=== PATIENT | female | born 1980 | race American Indian/Alaskan Native ===

== ENCOUNTER 2016-11-14 10:12 | Emergency (ER) | payer BC ==
[2016-11-14 10:36] VITALS: BP 126/84; PULSE 67; TEMP 98; O2SAT 100
[2016-11-14] MEDS ORDERED: Albuterol-Ipratrop 3 mg / 0.5 (3 ml) UD INH STA ×2 (11:42→11:47)
--- NOTE | 2016-11-14 12:18 | ED PDOC ---
HPI: SOB/CHF/COPD Time Seen by Provider: 11/14/16 11:00 Chief Complaint (Nursing): Shortness Of Breath Chief Complaint (Provider): Shortness of Breath History Per: Patient History/Exam Limitations: no limitations Onset/Duration Of Symptoms: Hrs (since 5:00 this morning) Current Symptoms Are (Timing): Still Present Additional Complaint(s): Lena Parra is a 36 year old female with a history of asthma that presents to the ED with a chief complaint of acute shortness of breath that she has been experiencing since 5:00 AM this morning. Patient states that she ran out of her albuterol pump at home and knows that the cause of her symptoms is her asthma. Past Medical History Reviewed: Historical Data, Nursing Documentation, Vital Signs Vital Signs: Last Vital Signs Temp 98 F 11/14/16 10:34 Pulse 67 11/14/16 10:34 Resp 16 11/14/16 10:38 BP 126/84 11/14/16 10:34 Pulse Ox 100 11/14/16 12:25 - Medical History PMH: Asthma - Family History Family History: States: Unknown Family Hx, Hypertension - Immunization History Hx Tetanus Toxoid Vaccination: No Hx Influenza Vaccination: No Hx Pneumococcal Vaccination: No - Home Medications Home Medications: Ambulatory Orders Medication Instructions Recorded Albuterol HFA [Ventolin HFA 90 2 puff IH [id number] #0 puff 02/12/15 mcg/actuation (8 g)] Albuterol 0.083% [Albuterol 0.083% 2.5 mg IH Q4H PRN #1 neb 11/14/16 Inhal Gianna (2.5 mg/3 ml) UD] Albuterol HFA [Ventolin HFA 90 1 - 2 puff IH Q4H PRN #1 bottle 11/14/16 mcg/actuation (8 g)] - Allergies Allergies/Adverse Reactions: Allergies Allergy/AdvReac Type Severity Reaction Status Date / Time Penicillins Allergy RASH Verified 11/14/16 10:33 shellfish derived Allergy SWELLING Verified 11/14/16 10:33 Review of Systems Respiratory: Positive for: Shortness of Breath, Wheezing (mild) Physical Exam - Reviewed Nursing Documentation Reviewed: Yes Vital Signs Reviewed: Yes - Physical Exam Appears: Positive for: Non-toxic, No Acute Distress Head Exam: Positive for: ATRAUMATIC, NORMOCEPHALIC Skin: Positive for: Normal Color, Warm Cardiovascular/Chest: Positive for: Regular Rate, Rhythm. Negative for: Murmur Respiratory: Positive for: Normal Breath Sounds (good air entry bilaterally), Wheezing (mild) Neurologic/Psych: Positive for: Alert, Oriented. Negative for: Motor/Sensory Deficits - ECG O2 Sat by Pulse Oximetry: 100 (RA) Pulse Ox Interpretation: Normal Medical Decision Making Medical Decision Making: Impression: SOB due to asthma Plan: * Albuterol 3 ml INH * Nebulizer Tx * Peak Flow Pre/Post Tx * Reevaluation Patient feels better after 1 Albuterol Tx, minimal wheeze. Will gives pt one more Abuterol tx as well as Prednisone 40 mg PO. 12:25 Patient feels better, resting comfortably, has been sleeping in ED. Patient has no complaints and is stable for discharge home. Scribe Attestation: Documented by Jodi Cunningham, acting as a scribe for Jennifer Dasilva MD. Provider Scribe Attestation: All medical record entries made by the Scribe were at my direction and personally dictated by me. I have reviewed the chart and agree that the record accurately reflects my personal performance of the history, physical exam, medical decision making, and the department course for this patient. I have also personally directed, reviewed, and agree with the discharge instructions and disposition. Disposition - Clinical Impression Clinical Impression: Asthma - Patient ED Disposition Is Patient to be Admitted: No Counseled Patient/Family Regarding: Studies Performed, Diagnosis, Need For Followup - Disposition [facility]errals: [facility] [Outside] [facility] [Outside] Disposition: Routine/Home Disposition Time: 12:25 Condition: STABLE Additional Instructions: follow up with your primary doctor in 1-2 days return to ED with any worsening or concerning symptoms Prescriptions: Albuterol 0.083% [Albuterol 0.083% Inhal Gianna (2.5 mg/3 ml) UD] 2.5 mg IH Q4H PRN #1 neb PRN Reason: Wheezing Albuterol HFA [Ventolin HFA 90 mcg/actuation (8 g)] 1 - 2 puff IH Q4H PRN #1 bottle PRN Reason: Wheezing Instructions: Asthma (ED)
[2016-11-14 12:22] VITALS: RESP 16
--- NOTE | 2016-11-18 08:06 | CARD ---
APPROVED REPORT EKG Measurement Heart [id number] [id number] <Conclusion> Normal sinus rhythm Normal ECG
== END 2016-11-14 12:32 | disposition home or self-care (01) ==
LOC: H.ER 10:12
DX: J45.909 Unspecified asthma, uncomplicated (principal)

== ENCOUNTER 2017-08-30 15:01 | Inpatient (IN) | payer BC ==
[2017-08-30 16:23] VITALS: BMI 35.9
[2017-08-30 18:20] LABS: BASO % 0.5 % (0.0-2.0); EOS # 0.1 K/uL (0.0-0.7); EOS % 0.8 % (0.0-4.0); HEMOGLOBIN 11.8 g/dL (12.0-16.0); LYMPH # 1.7 K/uL (1.0-4.3); LYMPH % 17.4 % (20.0-40.0); MEAN CELL VOLUME 88.2 fl (81.0-99.0); MEAN CORPUSCULAR HEMOGLOBIN 29.7 pg (27.0-31.0); MEAN CORPUSCULAR HGB CONC 33.7 g/dL (33.0-37.0); MEAN PLATELET VOLUME 10.2 fl (7.2-11.7); MONO % 10.4 % (0.0-10.0); NEUT # 6.9 K/uL (1.8-7.0); NEUT % 70.9 % (50.0-75.0); NRBC % 0.2 % (0.0-0.0); RBC 3.98 Mil/uL (3.80-5.20); RED CELL DISTRIBUTION WIDTH 13.9 % (11.5-14.5); WHITE BLOOD COUNT 9.8 K/uL (4.8-10.8)
[2017-08-30 18:29] LABS: ALBUMIN 3.5 g/dL (3.5-5.0); ALT/SGPT 35 U/L (9-52); AST/SGOT 32 U/L (14-36); BILIRUBIN,DIRECT 0.3 mg/ml (0.0-0.4); BLOOD UREA NITROGEN 9 mg/dl (7-17); CALCIUM 10.1 mg/dL (8.4-10.2); GFR AFRICAN-AMERICAN > 60; GFR NON-AFRICAN AMERICAN > 60; URIC ACID 5.8 mg/Dl (2.2-7.5)
[2017-08-30 18:39] LABS: SQUAMOUS EPITHIAL 1 /hpf (0-5); URINE BILIRUBIN NEGATIVE (NEGATIVE); URINE BLOOD NEGATIVE (NEGATIVE); URINE CLARITY CLEAR (Clear); URINE COLOR STRAW (YELLOW); URINE GLUCOSE (UA) NEG (Normal); URINE LEUKOCYTE ESTERASE NEG Leu/uL (Negative); URINE PROTEIN NEGATIVE (NEGATIVE); URINE UROBILINOGEN 0.2-1.0 mg/dL (0.2-1.0)
[2017-08-30] MEDS ORDERED: Lactated Ringer's 1,000 ML IV SCH ×2 (20:15)
[2017-08-30] MEDS ORDERED: Magnesium Sulfate 4 gm/100 ml 4 GM/100 ML BAG IV ONE (20:44)
[2017-08-30] MEDS ORDERED: Magnesium Sul 40GM/1L SW 40 GM/1,000 ML ML IV ONE (21:00)
[2017-08-30] MEDS: Lactated Ringer's 1,000 ML IV SCH (21:20)
[2017-08-31] MEDS ORDERED: Clindamycin 600mg/50ml NS 600 MG/50 ML BAG IVPB SCH (01:00)
[2017-08-31] MEDS ORDERED: Oxytocin 30 units/LR 500ML 30 U/500 ML BAG IV ONE (11:26)
[2017-08-31] MEDS ORDERED: ceFAZolin 2 GM in Sodium Chloride 0.9% 100 ML IVPB ONE (11:30)
--- NOTE | 2017-08-31 11:43 | OBPN ---
Datetime: 08/31/2017 11:37 IP Informed Consent Obtain: Section Delivery IP Progress Note Comment: Patient evaluated, cervidil removed, /-3, remote from delivery. BPs=15 0s/90s, patient on Mg for pre-eclampsia. Patient denies [place], blurry vision, N/V. Discussed with rossana justice that she is remote from delivery - will proceed with for delivery. FHR-120 mod da, +acce ls, no decels. Discussed with patient risks/benefits of surgery, antibiotics ordered, scds placed rita aterally, will proceed to OR Datetime: 08/30/2017 20:00 Membranes, Provider: Intact FHR - Baseline A Provider: 125 Vital Signs Provider: Reviewed; Within Normal Limits NICHD Accel Fetus A IP Provider: 15X15 FHR Category Provider Fetus A: Category I NICHD Variability Prov Fetus A: Moderate 6-25bpm Dilatation, Provider: FT Effacement, Provider: Thick Station, Provider: -3 Datetime: 08/30/2017 16:31 Vital Signs Provider Details: BP NICHD Decel Fetus A IP Provider: None
[2017-08-31] MEDS ORDERED: Gentamicin 100mg/100ml NS 100 MG/100 ML BAG IVPB SCH (11:45)
[2017-08-31] MEDS ORDERED: Morphine 1 mg/ml preservative-free Inj(Duramorph) ONE (12:00)
[2017-08-31] MEDS ORDERED: Dexamethasone 4 mg/1 ml ONE (12:34)
[2017-08-31] MEDS ORDERED: Bisacodyl 5mg EC Tab PO PRN (13:08)
[2017-08-31] MEDS ORDERED: Oxycodone/Acetaminophen 5/325 mg Tab PO PRN ×2 (13:08)
--- NOTE | 2017-08-31 13:09 | OBDS ---
MATERNAL INFORMATION Provider Comments: Surgeon:Dr. Christel Horton Mixer Operator Helper Hot Metal: Dr. Martin Horton Pre-op Dx: Pre-eclampsia, full term remote from delivery Surgery: PLTCS Post-op: Same Findings: Live female infant, 9lbs 2oz, 9/9, cephalic, clear fluid, grossly nml tubes, ovaries, pl acenta, uterus EBL: 800ml Anesthesia: Spinal by Dr. Pardo UO: 100mL Total Input: 1200mL Complications: None LABOR SUMMARY EDC: 09/03/2017 00:00 No. Babies in Womb: 1 LABOR INFORMATION Cervical Ripening Agents: Cervidil (Annotations: Cervidil inserted by Dr. Cheung ) Group B Beta Strep: Positive
--- NOTE | 2017-08-31 13:40 | OBADHP ---
Datetime: 08/30/2017 20:00 Admit Comment, IP Provider: 36 y/o F , IUP 39.3 wks confir U/S, EDGARD 09/03, sent here by Dr. Eddie bobo for PIH work up after 140-150 systolic. patient denies any headache, blurred vision, chest pain, di zziness, SOB, abdo pain or urinary symptoms Denies LOF/CTX/BV. good FM PNC: Dr. Long PNI: No complications so far PMH: Asthma (used meds in last summer) PSH: Denies Meds: PNV Allg: Penicillin (hives) SH: Denies any use FH: father htn ROS: unremarkable VS: 139/85 FHT 150 PE: as above A/P: 36 y/o F , IUP 39.3 confir U/S, EDGARD 09/03, sent here by Dr. Long for PIH work up after 1 40-150 systolic. Pt has elevated blood pressure will admit pt for IOL. -admit patient -IOL protocal -cervidil -continue FM -Mg+ -anesthesiology Case Discussed with Dr. Skye Carmichael, PGY I Pelvic Type - PN: Adequate Extremities - PN: Normal Abdomen - PN: Normal Back - PN: Not Done Breast - PN: Not Done Lungs - PN: Normal Heart - PN: Normal Thyroid - PN: Not Done Neurologic - PN: Normal HEENT - PN: Normal General - PN: Normal FHR - Baseline A Provider: 125 Membranes, Provider: Intact Vital Signs Provider: Reviewed; Within Normal Limits IP Chief Complaint: Signs/Symptoms Gestational HTN NICHD Variability Prov Fetus A: Moderate 6-25bpm NICHD Accel Fetus A IP Provider: [id number] FHR Category Provider Fetus A: Category I Dilatation, Provider: FT Effacement, Provider: Thick Station, Provider: -3 Genitourinary Exam: Normal DTRs - PN: Not Done EGA AdmitDate IP: 39.3 IP Adm Impression: Term, intrauterine IP Admit Plan: Admit to unit; Initiate labor protocol; Initiate labor induction protocol Datetime: 08/30/2017 16:31 IP Chief Complaint Other: HighBP Vital Signs Provider Details: BP NICHD Decel Fetus A IP Provider: None
--- NOTE | 2017-08-31 16:04 | OP ---
PROCEDURE DATE: 08/31/2017 PREOPERATIVE DIAGNOSIS: Preeclampsia full term remote from delivery. POSTOPERATIVE DIAGNOSIS: Preeclampsia full term remote from delivery. PROCEDURE: Primary low-transverse . SURGEON: Christel Horton MD AP PROCESSOR: Dr. Martin Horton. TYPE OF ANESTHESIA: Spinal. ANESTHESIA ADMINISTERED BY: Vadim Duff MD FINDINGS: White female infant, cephalic presentation, 9 pounds 2 ounces, 9 and 9 Apgars, clear fluid, grossly normal tubes, ovaries, placenta, and uterus. ESTIMATED BLOOD LOSS: 800 mL. URINE OUTPUT: 100 mL. TOTAL FLUID INPUT: 1200 mL. COMPLICATIONS: None. CONDITION: Stable. PATHOLOGY SPECIMEN: Cord blood. INDICATIONS: This is a 36-year-old at 39 plus weeks who presented to Labor and Delivery with elevated blood pressures and proteinuria who was found to be preeclamptic started on induction was started. The patient did not progress in labor and was remote from delivery with elevated blood pressures. We discussed with the patient to proceed with for delivery. The patient verbalized understanding. Risks and benefits of procedure were discussed with the patient including risk of bleeding, infection, damage to surrounding organs such as bowel, bladder, ureter, and uterus. The patient verbalized understanding and signed informed consent. DESCRIPTION OF PROCEDURE: The patient was taken to the OR. Gentamicin and clindamycin were given preoperatively, anesthesia was placed bilaterally. The patient prepped and draped in the normal sterile fashion in dorsal supine position with a leftward tilt. A Pfannenstiel skin incision was made with the scalpel and carried to the underlying layer of fascia with the scalpel and the Bovie. The fascia was incised in the midline. The incision was extended laterally with the Hazel scissors. Leah clamp was used to tent up the inferior aspect of this incision, which we dissected off the underlying pyramidalis of muscles with the Bovie. In a similar fashion, we tented up the superior aspect of this incision and dissected off the underlying rectus abdominis muscles with the Bovie. The muscles were bluntly at the midline. The peritoneum identified, entered bluntly. Incision was extended superiorly and inferiorly with good visualization of all underlying organs. The bladder blade was inserted. The vesicouterine peritoneum was identified, grasped with pickups and a bladder flap was created with the Metzenbaum scissors. The lower uterine was incised in a transverse fashion and the uterine cavity was entered. Clear fluid was noted. Uterine incision was extended manually. The was delivered in cephalic presentation atraumatically followed by shoulders and rest of the infant atraumatically. Mouth and nose was suctioned. Cords were clamped and cut. The was handed off to the awaiting pediatric team. Cord blood was obtained. Placenta was extracted manually. Uterus was exteriorized, cleared off all clots. Uterine incision was repaired with an 0-Vicryl stitch and [id number] was placed with an 0-Monocryl stitch. Hysterotomy site appeared to be hemostatic. The uterus was returned to the abdomen. Gutters were cleared of all clots. The peritoneum was closed with 2-0 Monocryl. Muscles were re-approximated with the same stitch. The fascia was reapproximated with an 0-Vicryl stitch. Subcutaneous fat was reapproximated with 0-Vicryl. The skin was closed with 4-0 Monocryl. Sponge, lap, and needle counts were correct x4. The patient was taken to recovery room in stable condition. There were no other complications. Christel Horton MD
[2017-08-31] MEDS ORDERED: Magnesium Sul 40GM/1L SW 40 GM/1,000 ML ML IV ONE ×2 (16:59→17:00)
[2017-08-31] MEDS: Lactated Ringer's 1,000 ML IV SCH (21:00)
[2017-08-31] MEDS: Simethicone 80 mg Chewtab PO SCH (22:00)
[2017-09-01] MEDS ORDERED: Magnesium Sul 40GM/1L SW 40 GM/1,000 ML ML IV ONE (06:31)
[2017-09-01 07:36] LABS: HEMOGLOBIN 10.6 g/dL (12.0-16.0); MEAN CELL VOLUME 88.3 fl (81.0-99.0); MEAN CORPUSCULAR HEMOGLOBIN 29.2 pg (27.0-31.0); MEAN CORPUSCULAR HGB CONC 33.1 g/dL (33.0-37.0); RBC 3.64 Mil/uL (3.80-5.20); RED CELL DISTRIBUTION WIDTH 13.9 % (11.5-14.5); WHITE BLOOD COUNT 13.5 K/uL (4.8-10.8)
[2017-09-01] MEDS ORDERED: Multivitamin With Minerals Tab PO SCH (09:00)
[2017-09-01] MEDS: Simethicone 80 mg Chewtab PO SCH ×3 (09:09→22:13)
--- NOTE | 2017-09-01 09:28 | OBPPN ---
Datetime: 09/01/2017 06:08 PP Pain Prov: Within normal limits PP Nausea Prov: Denies PP Flatus Prov: Yes PP BM Prov: No PP Breasts Prov: Normal PP Heart Prov: Normal PP Lungs Prov: Normal PP Abdomen/Uterus Prov: Normal PP Lochia Prov: Normal PP Vulva/Perineum Prov: Normal PP CVA Tenderness Prov: Not Done PP Extremities Prov: Normal PP C/S Incision Prov: Normal PP Progress Prov: Normal PP Impression Prov: Normal progression PP Plan Prov: Continue present management PP Progress Note Prov: S: 36 YO POD1, s/p repeat on 08/31/17. Pt is seen and examined i n L_D this AM. Pt is currently recovering and receiving Mg. Was itchy last night, but resolved after benadryl. Pt is endorsing minimal abdominal pain with movement. Bleeding has improved since delivery. Will advance diet today. - BM but passing flatus. Denies chest pain, headache, blurry vision, dyspne a, n/v/d/c, fever/chills. O: VS: wnl, afebrile GEN: Awake, alert and baby girl by bedside. Sleepy HEENT: EOMI, moist mucosa. LUNGS: CTA B/L, no wheezing, rhonci, or rales CVS: RRR, S1, S2 no murmurs ABD: ND, +BS, soft abdomen, firm fundus, below umbilicus. Dressing intact this AM, no drainage noted. EXT: No edema, neg calf tenderness NEURO/PSYCHI: AAOx3, no grossly focal deficit, preserved affect and mood. Assessment/Plan: 36 YO POD1, s/p repeat on 08/31/17, gave to a baby girl. Pt re cora afebrile, tolerating pain with medication, good PO intake and urinating without any difficultie s. Doing well on POD1. -C/w regular diet as tolerated. -OOB with caution SCDs for DVT prophylaxis -continue to monitor blood pressure -continue Mg+ -advance diet as tolerated -Ibuprofen 600 mg for pain prn -C/w Colace 100mg PO BID -Encourage and early ambulation. Brenda Carmichael, PGY I OB Hospitalist Addendum: Pt seen and examined by me. Agree w/ above. POD 1 s/p primary c/s for P EC, remote from delivery, doing well, breast feeding. Pt reports still feeling a little itchy in her legs. Benadryl 25 mg PO ordered. (ES) Vital Signs Provider PP: Reviewed; Within Normal Limits
[2017-09-01] MEDS ORDERED: Oxycodone/Acetaminophen 5/325 mg Tab PO PRN (12:45)
[2017-09-01] MEDS ORDERED: Bisacodyl 5mg EC Tab PO PRN (12:45)
[2017-09-01] MEDS: Oxycodone/Acetaminophen 5/325 mg Tab PO PRN ×2 (16:54→22:09)
[2017-09-02] MEDS: Simethicone 80 mg Chewtab PO SCH ×3 (05:05→22:00)
[2017-09-02] MEDS ORDERED: Lansinoh for Breast Feeding Mothers TP ONE (07:47)
[2017-09-02] MEDS: Multivitamin With Minerals Tab PO SCH (08:23)
--- NOTE | 2017-09-02 10:48 | OBPPN ---
Datetime: 09/02/2017 07:39 PP Pain Prov: Within normal limits PP Nausea Prov: Denies PP Flatus Prov: Yes PP BM Prov: No PP Heart Prov: Normal PP Lungs Prov: Normal PP Abdomen/Uterus Prov: Normal PP Lochia Prov: Normal PP CVA Tenderness Prov: Normal PP Extremities Prov: Normal PP C/S Incision Prov: Normal PP Progress Prov: Normal PP Impression Prov: Normal progression PP Plan Prov: Continue present management PP Progress Note Prov: S: 36 YO POD2, s/p repeat on 08/31/17. Pt is seen and examined i n L_D this AM. Pain is well controlled with medications. Lochia is decreasing in quantity since deliv raysa. Pt tolerating PO, ambulating and urinating with NO issues. Pt passing gasses but NO BM yet. Pt i s and supplementing with a little formula. Denies chest pain, headache, blurry vision, dyspnea, n/v/d/c, fever/chills. O: H/H 10.6/32.1; BP 149/88 VS: wnl, afebrile GEN: Awake, alert and baby girl by bedside. Sleepy HEENT: EOMI, moist mucosa. LUNGS: CTA B/L, no wheezing, rhonci, or rales CVS: RRR, S1, S2 no murmurs ABD: ND, +BS, soft abdomen, firm fundus, below umbilicus. Incision is dry, intact and clean, no st erile strip and no [place]. EXT: No edema, neg calf tenderness NEURO/PSYCHI: AAOx3, no grossly focal deficit, preserved affect and mood. Assessment/Plan: 36 YO POD2. Pt remains afebrile, good PO intake, with elevated BP and recove ring well overall. -C/w post- management. -Monitor VS, Blood pressure. -C/w regular diet as tolerated. -continue to monitor blood pressure -Ibuprofen 600 mg for pain prn -C/w Colace 100mg PO BID -Encourage and early ambulation. Case discussed with OB-hospitalist correctional captain. Kenji PGY-1. Addendum by Dr. Horton: I have evaluated the patient independently and I agree with the above IP PP Procedures: None Vital Signs Provider PP: Reviewed
[2017-09-02] MEDS: Oxycodone/Acetaminophen 5/325 mg Tab PO PRN (18:33)
[2017-09-03] MEDS: Simethicone 80 mg Chewtab PO SCH ×2 (04:21→10:08)
[2017-09-03] MEDS: Multivitamin With Minerals Tab PO SCH (08:48)
[2017-09-03] MEDS ORDERED: Pneumococcal 23-Valent Vaccine IM ONE (10:00)
--- NOTE | 2017-09-03 10:34 | OBPPN ---
Datetime: 09/03/2017 06:00 PP Pain Prov: Within normal limits PP Nausea Prov: Denies PP Flatus Prov: Yes PP BM Prov: Yes PP Breasts Prov: Normal PP Heart Prov: Normal PP Lungs Prov: Normal PP Abdomen/Uterus Prov: Normal PP Lochia Prov: Normal PP Vulva/Perineum Prov: Normal PP CVA Tenderness Prov: Not Done PP Extremities Prov: Normal PP C/S Incision Prov: Normal PP Progress Prov: Normal PP Impression Prov: Normal progression PP Plan Prov: Continue present management; Discharge PP Progress Note Prov: S: 36 YO POD3, s/p repeat . Pt is seen and examined this AM. No acute overnight events. Pt is endorsing mild abdominal pain, significant improvement from previously . Pt is ambulating without any difficulties. Bleeding is like menses. Tolerating PO diet. +BM/+flatus . Looking forward to going home today. Denies chest pain, dyspnea, headache, blurry vision, n/v/d/c, fever/chills, and calf pain. O: VS: wnl, afebrile GEN: Awake, alert and baby girl HEENT: EOMI, moist mucosa. LUNGS: CTA B/L, no wheezing, rhonci, or rales CVS: RRR, S1, S2 no murmurs ABD: ND, +BS, soft abdomen, firm fundus, below umbilicus. Incision healing well, no discharge noted. EXT: No edema, neg calf tenderness NEURO/PSYCHI: AAOx3, no grossly focal deficit, preserved affect and mood. Assessment/Plan: 36 YO POD3, s/p repeat on 08/31/17, gave to a baby girl. Pt re cora afebrile, tolerating pain with medication, good PO intake and urinating without any difficultie s. S/p Mg+. Doing well on POD3. -C/w regular diet as tolerated. -OOB with caution SCDs for DVT prophylaxis -monitor blood pressure -Ibuprofen 600 mg for pain prn -C/w Colace 100mg PO BID -f/u post-del cbc -Encourage and early ambulation. -will d/c pt home today -pp follow up in 6 weeks, WC in 1 week and follow up for baby in 2-3 days Brenda Carmichael, PGY I obh addendum: pt seen _ examined by me. agree w/above assessment and plan w/ following addition- c/o breast nipp le pain. o: nipple erythema- mild p: lacation consult cool gel pack instructed in . Vital Signs Provider PP: Reviewed; Within Normal Limits
--- NOTE | 2017-09-03 10:37 | OBDCSUM ---
Datetime: 09/03/2017 06:09 Discharged to, Provider: Home Follow up at, Provider: Dr. Long Disch Instr Activity: Normal activity; May be up to bathroom; May be up for meals; May Shower Disch Instr Diet: Regular Discharge Instructions, Provider: Routine instructions given Discharge Diagnosis, Provider: Term Delivered Discharge Time: 09/03/2017 06:09 Follow up in weeks, Provider: 1 week and 6 weeks Disch Referrals: None Discharge Instruct Comment, Prov: pp and postop Contraception discussed, Prov: Yes Disch Activity Restrictions: No exercising; No lifting; No driving; No sexual activity; Nothing in v agina - [place], tampons, douche Discharge Comment, Provider: 36 YO with PIH, POD3, s/p for labor arrest. Gave t o a baby girl, 39.4wks IUP, on 08/31/17 @ 12:32AM. of 9/9 and weight of 4138g. S/p Mg, with no co mplications during the post- period. Pt is tolerating PO diet, pain is well controlled, and amb ulating without difficulties. Doing well POD3. Discharge Instructions: 1. Encourage ambulating and 2. C/W PNV 1 tab po daily 3. Percocet 5/325mg and Ibuprofen 600mg for pain and Senokot for constipation. 4. ER precautions: If excessive bleeding or fever without relief from medication, go to ED 5. F/U with Dr. Long in 1 week WC, in 6 wks for PP visit and follow up in 2-3 days for baby. Brenda Carmichael, PGY I Contraception after Delivery: Undecided
[2017-09-04 01:19] VITALS: BP 135/91; PULSE 86; RESP 18; TEMP 97.1; O2SAT 99
== END 2017-09-03 12:15 | disposition home or self-care (01) | DRG 766 ==
LOC: H.EROB2 15:01 → H.L&D 20:06 → H.OB/GYN 09-01 13:34
PROVIDERS: ADMIT Obstetrics & Gynecology; ATTEND Obstetrics & Gynecology
PROC: 4A1HXCZ Monitoring of Products of Conception, Cardiac Rate, External Approach (ICD-10-PCS; 2017-08-30)
PROC: 10D00Z1 Extraction of Products of Conception, Low, Open Approach (ICD-10-PCS; principal; 2017-08-31)
DX: O11.4 Pre-existing hypertension with pre-eclampsia, complicating childbirth (principal); Z37.0 Single live birth; O99.52 Diseases of the respiratory system complicating childbirth; J45.909 Unspecified asthma, uncomplicated; O99.824 Streptococcus B carrier state complicating childbirth; Z3A.39 39 weeks gestation of pregnancy

== ENCOUNTER 2018-07-12 08:33 | Emergency (ER) | payer BC ==
[2018-07-12 08:43] VITALS: BMI 28.0
--- NOTE | 2018-07-12 09:16 | ED PDOC ---
HPI: General Adult Time Seen by Provider: 07/12/18 09:09 Chief Complaint (Nursing): ENT Problem Chief Complaint (Provider): sore throat History Per: Patient History/Exam Limitations: no limitations Onset/Duration Of Symptoms: Days (yesterday) Have you had recent travel within the past 21 days to any of the following countries: [place], [place], [place] or [place]?: No Current Symptoms Are (Timing): Still Present Additional Complaint(s): Lena Parra is a 37 year old female, with a past medical history of asthma and HTN, who presents to the emergency department complaining of throat swelling and pain ongoing since yesterday associated with runny nose. Patient reports painful swallowing and states pain will radiate upwards to the right ear. She denies any cough, nausea, vomit, diarrhea, abdominal pain, fever, chills, chest pain, shortness of breath, headache, dizziness, weakness, numbness or tingling. No further medical complaints. PMD: None provided. Past Medical History Reviewed: Historical Data, Nursing Documentation, Vital Signs Vital Signs: Last Vital Signs Temp 98 F 07/12/18 08:48 Pulse 87 07/12/18 08:48 Resp 17 07/12/18 08:48 BP 151/100 H 07/12/18 08:48 Pulse Ox 100 07/12/18 08:48 - Medical History PMH: Asthma, HTN Denies: Depression, Diabetes - Surgical History Surgical History: No Surg Hx - Family History Family History: States: Unknown Family Hx, Hypertension - Social History Current smoker - smoking cessation education provided: No Alcohol: None Drugs: Denies - Immunization History Hx Tetanus Toxoid Vaccination: No Hx Influenza Vaccination: No Hx Pneumococcal Vaccination: No - Home Medications Home Medications: Ambulatory Orders Medication Instructions Recorded RX: Albuterol 0.083% [Albuterol 2.5 mg IH Q4H PRN #1 neb 11/14/16 0.083% Inhal Gianna (2.5 mg/3 ml) UD] RX: Multivit/Folic Acid/I 1 tab PO DAILY 08/30/17 [] RX: Ibuprofen [Motrin Tab] 600 mg PO Q4H PRN tab 09/03/17 Sennosides [Senokot] 8.6 mg PO DAILY #20 tablet 09/03/17 oxyCODONE/Acetaminophen [Percocet 1 ea PO Q6H #15 tab 09/03/17 5/325 mg Tab] Ibuprofen [Motrin] 600 mg PO TID 7 Days tab 07/12/18 Oseltamivir Phosphate [Tamiflu] 75 mg PO BID 5 Days capsule 07/12/18 - Allergies Allergies/Adverse Reactions: Allergies Allergy/AdvReac Type Severity Reaction Status Date / Time Penicillins Allergy RASH Verified 11/14/16 10:33 shellfish derived Allergy SWELLING Verified 11/14/16 10:33 Review of Systems ROS Statement: Except As Marked, All Systems Reviewed And Found Negative Constitutional: Negative for: Fever, Chills ENT: Positive for: Ear Pain (right), Nose Discharge (runny nose), Throat Pain, Throat Swelling Cardiovascular: Negative for: Chest Pain Respiratory: Negative for: Cough, Shortness of Breath Gastrointestinal: Negative for: Nausea, Vomiting, Abdominal Pain, Diarrhea Neurological: Negative for: Weakness, Numbness (tingling), Headache, Dizziness Physical Exam - Reviewed Nursing Documentation Reviewed: Yes Vital Signs Reviewed: Yes - Physical Exam Appears: Positive for: No Acute Distress Head Exam: Positive for: ATRAUMATIC, NORMAL INSPECTION, NORMOCEPHALIC Skin: Positive for: Normal Color, Warm, Dry Eye Exam: Positive for: Normal appearance, EOMI, PERRL ENT: Positive for: TM Is/Are (intact), Nasal Congestion. Negative for: Pharyngeal Erythema, Tonsillar Exudate, Tonsillar Swelling Neck: Positive for: Normal, Painless ROM Cardiovascular/Chest: Positive for: Regular Rate, Rhythm. Negative for: Murmur Respiratory: Positive for: Normal Breath Sounds. Negative for: Respiratory Distress Gastrointestinal/Abdominal: Positive for: Normal Exam, Soft. Negative for: Tenderness, Guarding, Rebound Back: Positive for: Normal Inspection. Negative for: L CVA Tenderness, R CVA Tenderness, Vertebral Tenderness Extremity: Positive for: Normal ROM (upper and lower extremities). Negative for: Deformity, Swelling Lymphatic: Negative for: Adenopathy Neurologic/Psych: Positive for: Alert, Oriented. Negative for: Motor/Sensory Deficits - ECG O2 Sat by Pulse Oximetry: 100 (RA) Pulse Ox Interpretation: Normal Medical Decision Making Medical Decision Making: Time: 09:09 Initial Impression: Viral illness Initial Plan: --Motrin tab 600 mg PO --Tamiflu cap 75 mg PO --Reevaluation 09:11 Patient states she is not . Will treat for flu due to prevalence in school. 09:18 Patient will be discharged home with Rx for Tamiflu and Motrin. Counseling was provided and all questions were answered regarding diagnosis and need for follow up with PMD. There is agreement to discharge plan. Return if symptoms persist or worsen. Scribe Attestation: Documented by Juan Luo, acting as a scribe for Anthony Mena MD Provider Scribe Attestation: All medical record entries made by the Scribe were at my direction and personally dictated by me. I have reviewed the chart and agree that the record accurately reflects my personal performance of the history, physical exam, medical decision making, and the department course for this patient. I have also personally directed, reviewed, and agree with the discharge instructions and disposition. Disposition - Clinical Impression Clinical Impression: Flu - Patient ED Disposition Is Patient to be Admitted: No Counseled Patient/Family Regarding: Diagnosis, Need For Followup, Rx Given - Disposition Referrals: [facility] [Outside] - 07/15/18 Disposition: Routine/Home Disposition Time: 09:18 Condition: STABLE Additional Instructions: Return if not better in 3 days. Prescriptions: Ibuprofen [Motrin] 600 mg PO TID 7 Days tab Oseltamivir Phosphate [Tamiflu] 75 mg PO BID 5 Days capsule Instructions: Flu, Adult (DC) Forms: [facility] ED School/Work Excuse
[2018-07-12 09:51] VITALS: BP 140/90; PULSE 85; RESP 19; TEMP 97.6
[2018-07-12 16:15] VITALS: O2SAT 100
== END 2018-07-12 09:51 | disposition home or self-care (01) ==
LOC: H.ER 08:33
DX: B34.9 Viral infection, unspecified (principal); I10 Essential (primary) hypertension; J45.909 Unspecified asthma, uncomplicated; Z88.0 Allergy status to penicillin

== ENCOUNTER 2018-07-17 19:05 | Emergency (ER) | payer BC ==
[2018-07-17 19:05] VITALS: BMI 28.0
[2018-07-17] MEDS ORDERED: Magnesium Sulfate 2 gm/50 ml 2 GM/50 ML BAG IV STA (20:02)
[2018-07-17] MEDS ORDERED: Magnesium Sulfate 2 gm/50 ml 2 GM/50 ML BAG ONE (20:14)
[2018-07-17 20:45] LABS: BASO % 0.5 % (0.0-2.0); EOS # 0.3 K/uL (0.0-0.7); EOS % 3.6 % (0.0-4.0); HEMOGLOBIN 13.2 g/dL (12.0-16.0); LYMPH # 2.5 K/uL (1.0-4.3); LYMPH % 27.7 % (20.0-40.0); MEAN CELL VOLUME 86.4 fl (81.0-99.0); MEAN CORPUSCULAR HEMOGLOBIN 29.2 pg (27.0-31.0); MEAN CORPUSCULAR HGB CONC 33.8 g/dL (33.0-37.0); MEAN PLATELET VOLUME 8.8 fl (7.2-11.7); MONO # 0.9 K/uL (0.0-0.8); MONO % 9.6 % (0.0-10.0); NEUT # 5.3 K/uL (1.8-7.0); NEUT % 58.6 % (50.0-75.0); RBC 4.51 Mil/uL (3.80-5.20); RED CELL DISTRIBUTION WIDTH 13.3 % (11.5-14.5)
[2018-07-17 20:52] LABS: SQUAMOUS EPITHIAL 2 /hpf (0-5); URINE BACTERIA RARE (<OCC); URINE BILIRUBIN SMALL (NEGATIVE); URINE BLOOD SMALL (NEGATIVE); URINE CLARITY CLEAR (Clear); URINE COLOR YELLOW (YELLOW); URINE GLUCOSE (UA) NEG (NEGATIVE); URINE LEUKOCYTE ESTERASE NEG Leu/uL (Negative); URINE PROTEIN 30 mg/dL (NEGATIVE)
[2018-07-17 20:58] LABS: ALBUMIN 4.2 g/dL (3.5-5.0); BLOOD UREA NITROGEN 15 mg/dl (7-17); CALCIUM 9.5 mg/dL (8.4-10.2); GFR NON-AFRICAN AMERICAN > 60
[2018-07-17 20:59] LABS: ALB/GLOB RATIO 1.1 (1.0-2.1); ALT/SGPT 35 U/L (9-52); AST/SGOT 30 U/L (14-36)
--- NOTE | 2018-07-17 21:12 | ED PDOC ---
History of Present Illness History of Present Illness: 37 year old female with a history of asthma and induced HTN presents to the ED with a worsening headache, facial pressure, severe nasal congestion and runny nose. Patient reports facial pain is located in her forehead and nose. Her right nostril drains more than the left and occasionally is blood. She was seen in this ED five days ago and diagnosed with influenza. She finished her prescription of Tamiflu and has also taken Ibuprofen and Aleve with mild relief. She denies fever, vomiting and nausea. PMD: [place] HPI: Influenza Time Seen by Provider: 07/17/18 19:20 Chief Complaint: Cough, Cold, Congestion Chief Complaint (Provider): Cough, Cold, Congestion History Per: Patient Exam Limitations: no limitations Onset/Duration Of Symptoms: Days (x 5) Symptoms include: headache, nasal congestion Sick Contacts (Context): None Past Medical History Reviewed: Historical Data, Nursing Documentation, Vital Signs Vital Signs: Last Vital Signs Temp 98.6 F 07/17/18 19:16 Pulse 84 07/17/18 19:16 Resp 18 07/17/18 19:16 BP 175/125 H 07/17/18 19:16 Pulse Ox 99 07/17/18 19:16 - Medical History PMH: Asthma, HTN ( induced) Denies: Depression, Diabetes - Surgical History Surgical History: No Surg Hx - Family History Family History: States: Unknown Family Hx, Hypertension - Immunization History Hx Tetanus Toxoid Vaccination: No Hx Influenza Vaccination: No Hx Pneumococcal Vaccination: No - Home Medications Home Medications: Ambulatory Orders Medication Instructions Recorded Albuterol 0.083% [Albuterol 0.083% 2.5 mg IH Q4H PRN #1 neb 11/14/16 Inhal Gianna (2.5 mg/3 ml) UD] Multivit/Folic Acid/I 1 tab PO DAILY 08/30/17 [] Ibuprofen [Motrin Tab] 600 mg PO Q4H PRN tab 09/03/17 Sennosides [Senokot] 8.6 mg PO DAILY #20 tablet 09/03/17 oxyCODONE/Acetaminophen [Percocet 1 ea PO Q6H #15 tab 09/03/17 5/325 mg Tab] Ibuprofen [Motrin] 600 mg PO TID 7 Days tab 07/12/18 Oseltamivir Phosphate [Tamiflu] 75 mg PO BID 5 Days capsule 07/12/18 Acetaminophen/Butalbital/Caf 1 - 2 tab PO Q6 PRN #16 tab 07/17/18 [Fioricet] Fluticasone Propionate [Flonase] 1 spr MATT QAM #1 bottle 07/17/18 levoFLOXacin [Levaquin] 500 mg PO DAILY #10 tab 07/17/18 - Allergies Allergies/Adverse Reactions: Allergies Allergy/AdvReac Type Severity Reaction Status Date / Time Penicillins Allergy RASH Verified 07/17/18 19:14 shellfish derived Allergy SWELLING Verified 07/17/18 19:14 Review of Systems ROS Statement: Except As Marked, All Systems Reviewed And Found Negative Constitutional: Negative for: Fever ENT: Positive for: Nose Discharge (occasional blood), Nose Congestion, Other (f acial pressure in forehead and nose) Gastrointestinal: Negative for: Nausea, Vomiting, Abdominal Pain Neurological: Positive for: Headache Physical Exam - Reviewed Nursing Documentation Reviewed: Yes Vital Signs Reviewed: Yes - Physical Exam Appears: Positive for: No Acute Distress, Uncomfortable Head Exam: Positive for: ATRAUMATIC, NORMAL INSPECTION, NORMOCEPHALIC Skin: Positive for: Normal Color, Warm, Dry Eye Exam: Positive for: Normal appearance, EOMI, PERRL. Negative for: Other (photophobia) ENT: Positive for: Sinus Pain/Drainage ( small abrasion to right nare), Other (tenderness to maxillary and frontal sinuses;) Neck: Positive for: Normal, Painless ROM, Supple Cardiovascular/Chest: Positive for: Regular Rate, Rhythm. Negative for: Murmur Respiratory: Positive for: Normal Breath Sounds. Negative for: Respiratory Distress Gastrointestinal/Abdominal: Positive for: Normal Exam, Soft. Negative for: Te nderness Extremity: Positive for: Normal ROM (x 4). Negative for: Deformity Neurologic/Psych: Positive for: Alert, Oriented (x 3). Negative for: Mot or/Sensory Deficits Medical Decision Making Medical Decision Makin:01 Impression: 37 year old female with clinical sinusitis in setting of recent influenza diagnosis Initial Plan: --CT sinuses w/o contrast --CBC --CMP --Lactic acid --Toradol 30 mg IM --Mag Sulfate 2 gm in 50 ml water --Blood cx --UA --urine dip --urine preg 22:05 CT Sinuses FINDINGS: PARANASAL SINUSES: There is mucoperiosteal thickening seen in the sphenoid, bilateral maxillary, ethmoid and frontal sinuses compatible with pansinusitis. ORBITS: Unremarkable. NASAL CAVITY/SEPTUM: There is bilateral nasal turbinate hypertrophy noted. BONES: No acute osseous abnormality. SOFT TISSUES: The soft tissues are unremarkable. IMPRESSION: 1. Evidence of pansinusitis. 2. Bilateral nasal turbinate hypertrophy is noted. 22:20 Iv Levaquin ordered. Patient is stable for discharge. Diagnosis is acute sinusitis. Return precautions provided. Scribe Attestation: Documented by Daphne Jimenez acting as a scribe for Ronald Javier MD Provider Scribe Attestation: All medical record entries made by the Scribe were at my direction and personally dictated by me. I have reviewed the chart and agree that the record accurately reflects my personal performance of the history, physical exam, medical decision making, and the department course for this patient. I have also personally directed, reviewed, and agree with the discharge instructions and disposition. - Laboratory Results Result Diagrams: 07/17/18 20:37 07/17/18 20:37 Lab Results: Total Bilirubin 0.4 mg/dl (0.2-1.3) 07/17/18 20:37 AST 30 U/L (14-36) 07/17/18 20:37 ALT 35 U/L (9-52) 07/17/18 20:37 Alkaline Phosphatase 89 U/L (38-126) 07/17/18 20:37 Total Protein 7.9 G/DL (6.3-8.2) 07/17/18 20:37 Albumin 4.2 g/dL (3.5-5.0) 07/17/18 20:37 Globulin 3.7 gm/dL (2.2-3.9) 07/17/18 20:37 Albumin/Globulin Ratio 1.1 (1.0-2.1) 07/17/18 20:37 - ECG O2 Sat by Pulse Oximetry: 99 (RA) Pulse Ox Interpretation: Normal Disposition - Clinical Impression Clinical Impression: Sinusitis - Patient ED Disposition Is Patient to be Admitted: No - Disposition Disposition: Routine/Home Disposition Time: 22:20 Condition: STABLE Prescriptions: Acetaminophen/Butalbital/Caf [Fioricet] 1 - 2 tab PO Q6 PRN #16 tab PRN Reason: Headache Fluticasone Propionate [Flonase] 1 spr MATT QAM #1 bottle levoFLOXacin [Levaquin] 500 mg PO DAILY #10 tab Instructions: Sinusitis in Adults Forms: [facility] (Sinhala)
[2018-07-17] MEDS ORDERED: levoFLOXacin 500 mg in D5W 500 MG/100 ML BAG IVPB STA (22:07)
[2018-07-17] MEDS ORDERED: levoFLOXacin 500 mg in D5W 500 MG/100 ML BAG IVPB ONE (22:54)
[2018-07-17 23:52] VITALS: BP 143/86; PULSE 72; RESP 16; TEMP 98.8; O2SAT 100
--- NOTE | 2018-07-18 10:22 | CT ---
Date of service: 07/17/2018 PROCEDURE: CT SINUSES WITHOUT CONTRAST HISTORY: headache COMPARISON: None available. TECHNIQUE: Contiguous axial CT images of the paranasal sinuses were obtained. Coronal and sagittal reformats were generated. Radiation dose: Total exam DLP = 620.85 mGy-cm. This CT exam was performed using one or more of the following dose reduction techniques: Automated exposure control, adjustment of the mA and/or kV according to patient size, and/or use of iterative reconstruction technique. FINDINGS: FRONTAL SINUSES: Trace right frontal sinusitis identified. None is appreciated at the left. ETHMOID SINUSES: Multifocal advanced sinusitis is seen nearly completely opacifying the bilateral ethmoid sinuses. SPHENOID SINUSES: An air-fluid level at the dependent portion of the right sphenoid sinus indicates mild to moderate sinusitis, borderline at the left. MAXILLARY SINUSES: Mucosal inflammatory changes are favored over fluid affecting primarily the bilateral dependent maxillary sinuses at the alveolar recesses and also the maxillary ostia bilaterally. SINUS DRAINAGE: The bilateral ostiomeatal units are occluded by fluid or mucoid material/mucosal inflammatory change. Similar changes affect the bilateral frontal recesses and right greater than left sphenoid ethmoidal recesses. Severe NASAL SEPTUM: Leftward bony nasal septal deviation identified. MASS: None. SKULL BASE: Unremarkable. TEMPORAL BONES: Middle ears and mastoid grossly unremarkable. OTHER FINDINGS: No destructive bony lesion appreciable throughout. Incidental views through the visualized inferior cerebrum appears unremarkable. IMPRESSION: Moderate pansinusitis pattern, primarily affecting bilateral ethmoid air cells diffusely. Additional sinuses are affected as discussed above with sinus drainage pathways generally occluded/obstructed by mucoid material, mucosal inflammation or fluid. Leftward bony nasal septal deviation. Preliminary report provided by Erica, 07/17/2018, 10:05 p.m..
== END 2018-07-17 23:51 | disposition home or self-care (01) ==
LOC: H.ER 19:05
DX: J01.90 Acute sinusitis, unspecified (principal); I10 Essential (primary) hypertension; J45.909 Unspecified asthma, uncomplicated; Z88.0 Allergy status to penicillin
CPT/HCPCS: 70486; 80053; 81003; 81025; 83605; 85025; 87040; 96374; 96375; 99283; J1885; J2765

== ENCOUNTER 2018-08-10 04:11 | Emergency (ER) | payer BC ==
[2018-08-10 04:11] VITALS: BMI 28.0
[2018-08-10 04:25] VITALS: TEMP 98.5
[2018-08-10] MEDS ORDERED: Sodium Chloride 0.9% 1,000 ML IV STA (04:58)
--- NOTE | 2018-08-10 05:12 | ED PDOC ---
HPI: Chest Pain Time Seen by Provider: 08/10/18 04:31 Chief Complaint (Nursing): Chest Pain Chief Complaint (Provider): Abdominal Pain History Per: Patient History/Exam Limitations: no limitations Onset/Duration Of Symptoms: Days (x1) Additional Complaint(s): 37 y/o female with history of HTN and asthma presents to the ED complaining of epigastric pain, nausea, and vomiting, onset since yesterday. Patient states she was recently treated for sinusitis. She states the epigastric pain radiates to her chest. She also reports that pain is associated with several episodes of non-bloody non-bilious vomiting yesterday. Pain has gotten worse overnight prompting her to come to ED this morning. Past Medical History Reviewed: Historical Data, Nursing Documentation, Vital Signs Vital Signs: Last Vital Signs Temp 98.5 F 08/10/18 04:22 Pulse 87 08/10/18 04:22 Resp 18 08/10/18 04:22 BP 140/105 H 08/10/18 04:22 Pulse Ox 98 08/10/18 04:22 - Medical History PMH: Asthma, HTN ( induced) Denies: Depression, Diabetes - Surgical History Surgical History: No Surg Hx - Family History Family History: States: Unknown Family Hx, Hypertension - Social History Current smoker - smoking cessation education provided: No Alcohol: None Drugs: Denies - Immunization History Hx Tetanus Toxoid Vaccination: No Hx Influenza Vaccination: No Hx Pneumococcal Vaccination: No - Home Medications Home Medications: Ambulatory Orders Medication Instructions Recorded Albuterol 0.083% [Albuterol 0.083% 2.5 mg IH Q4H PRN #1 neb 11/14/16 Inhal Gianna (2.5 mg/3 ml) UD] Multivit/Folic Acid/I 1 tab PO DAILY 08/30/17 [] Ibuprofen [Motrin Tab] 600 mg PO Q4H PRN tab 09/03/17 Sennosides [Senokot] 8.6 mg PO DAILY #20 tablet 09/03/17 oxyCODONE/Acetaminophen [Percocet 1 ea PO Q6H #15 tab 09/03/17 5/325 mg Tab] Ibuprofen [Motrin] 600 mg PO TID 7 Days tab 07/12/18 Oseltamivir Phosphate [Tamiflu] 75 mg PO BID 5 Days capsule 07/12/18 Acetaminophen/Butalbital/Caf 1 - 2 tab PO Q6 PRN #16 tab 07/17/18 [Fioricet] Fluticasone Propionate [Flonase] 1 spr MATT QAM #1 bottle 07/17/18 levoFLOXacin [Levaquin] 500 mg PO DAILY #10 tab 07/17/18 Esomeprazole Magnesium [Nexium] 20 mg PO QAM #14 ecc 08/10/18 - Allergies Allergies/Adverse Reactions: Allergies Allergy/AdvReac Type Severity Reaction Status Date / Time Penicillins Allergy RASH Verified 07/17/18 19:14 shellfish derived Allergy SWELLING Verified 07/17/18 19:14 Review of Systems ROS Statement: Except As Marked, All Systems Reviewed And Found Negative Cardiovascular: Positive for: Chest Pain Gastrointestinal: Positive for: Nausea, Vomiting, Abdominal Pain Physical Exam - Reviewed Nursing Documentation Reviewed: Yes Vital Signs Reviewed: Yes - Physical Exam Appears: Positive for: Well, Non-toxic, No Acute Distress Head Exam: Positive for: ATRAUMATIC, NORMAL INSPECTION, NORMOCEPHALIC Skin: Positive for: Normal Color, Warm, DRY Eye Exam: Positive for: EOMI, Normal appearance, PERRL ENT: Positive for: Normal ENT Inspection Neck: Positive for: Normal, Painless ROM Cardiovascular/Chest: Positive for: Regular Rate, Rhythm. Negative for: Murmur Respiratory: Positive for: Normal Breath Sounds. Negative for: Respiratory Distress Gastrointestinal/Abdominal: Positive for: Tenderness (epigastric) Back: Positive for: Normal Inspection Extremity: Positive for: Normal ROM. Negative for: Pedal Edema, Deformity Neurological/Psych: Positive for: Awake, Alert, Normal Tone. Negative for: Motor/Sensory Deficits - Laboratory Results Result Diagrams: 08/10/18 05:17 08/10/18 05:17 - ECG O2 Sat by Pulse Oximetry: 98 (RA) Pulse Ox Interpretation: Normal Medical Decision Making Medical Decision Making: Time:04:58 Initial Impression:37 y/o female with gastritis. Initial Plan: * Labs * IV Fluids * Pepcid * Zofran 06:17 Labs reviewed no clinically significant abnormalities. Patient reports marked improvement of symptoms and is stable for discharge. Diagnosis is gastritis and atypical chest pain. Scribe Attestation: Documented by Luis Eduardo Ferris, acting as a scribe forDr. Ronald Javier MD Provider Scribe Attestation: All medical record entries made by the Scribe were at my direction and person ally dictated by me. I have reviewed the chart and agree that the record accurately reflects my personal performance of the history, physical exam, medical decision making, and the department course for this patient. I have also personally directed, reviewed, and agree with the discharge instructions and disposition. Disposition - Clinical Impression Clinical Impression: Atypical chest pain, Gastritis - Disposition Disposition: Routine/Home Disposition Time: 06:17 Condition: STABLE Additional Instructions: JACQUELINE MENDOZA, thank you for letting us take care of you today. Your provider was Ronald Javier MD and you were treated for CHEST PAIN. The emergency medical care you received today was directed at your acute symptoms. If you were prescribed any medication, please fill it and take as directed. It may take several days for your symptoms to resolve. Return to the Emergency Department if your symptoms worsen, do not improve, or if you have any other problems. Please contact your doctor or call one of the physicians/clinics you have been referred to that are listed on the Patient Visit Information form that is included in your discharge packet. Bring any paperwork you were given at discharge with you along with any medications you are taking to your follow up visit. Our treatment cannot replace ongoing medical care by a primary care provider outside of the emergency department. Thank you for allowing the [facility] team to be part of your care today. If you had an X-Ray or CT scan: A Radiologist will review the ED reading if any change in treatment is needed we will contact you. If you had a blood, urine, or wound culture: It will take several days for the results, if any change in treatment is needed we will contact you. If you had an STI test: It will take 48 hours for the results. Please call after 1 week if you have not heard back. Prescriptions: Esomeprazole Magnesium [Nexium] 20 mg PO QAM #14 ecc Instructions: Gastritis, Chest Pain That Is Not Caused by the Heart (DC) Forms: [employer] (Slovak)
[2018-08-10 05:33] LABS: BASO % 0.2 % (0.0-2.0); EOS # 0.1 K/uL (0.0-0.7); EOS % 1.3 % (0.0-4.0); HEMOGLOBIN 12.9 g/dL (12.0-16.0); LYMPH # 0.8 K/uL (1.0-4.3); LYMPH % 11.3 % (20.0-40.0); MEAN CELL VOLUME 86.4 fl (81.0-99.0); MEAN CORPUSCULAR HEMOGLOBIN 29.4 pg (27.0-31.0); MEAN CORPUSCULAR HGB CONC 34.1 g/dL (33.0-37.0); MEAN PLATELET VOLUME 9.2 fl (7.2-11.7); MONO # 0.6 K/uL (0.0-0.8); MONO % 7.9 % (0.0-10.0); NEUT # 5.9 K/uL (1.8-7.0); NEUT % 79.3 % (50.0-75.0); RBC 4.37 Mil/uL (3.80-5.20); RED CELL DISTRIBUTION WIDTH 14.1 % (11.5-14.5); WHITE BLOOD COUNT 7.5 K/uL (4.8-10.8)
[2018-08-10 05:40] LABS: ALB/GLOB RATIO 1.2 (1.0-2.1); ALBUMIN 4.2 g/dL (3.5-5.0); ALT/SGPT 33 U/L (9-52); AST/SGOT 24 U/L (14-36); BLOOD UREA NITROGEN 10 mg/dl (7-17); CALCIUM 9.9 mg/dL (8.4-10.2); GFR NON-AFRICAN AMERICAN > 60; LIPASE 60 U/L (23-300)
[2018-08-10 05:59] LABS: SQUAMOUS EPITHIAL 1 /hpf (0-5); URINE BACTERIA RARE (<OCC); URINE BILIRUBIN NEGATIVE (NEGATIVE); URINE BLOOD SMALL (NEGATIVE); URINE CLARITY CLEAR (Clear); URINE COLOR YELLOW (YELLOW); URINE GLUCOSE (UA) NEG (NEGATIVE); URINE LEUKOCYTE ESTERASE MOD Leu/uL (Negative); URINE PROTEIN NEGATIVE (NEGATIVE); URINE UROBILINOGEN 0.2-1.0 mg/dL (0.2-1.0)
[2018-08-10 06:35] VITALS: BP 137/82; PULSE 82; RESP 17; O2SAT 99
--- NOTE | 2018-08-11 18:47 | CARD ---
APPROVED REPORT Date of service: 08/10/2018 EKG Measurement Heart [id number] <Conclusion> Normal sinus rhythm Normal ECG
== END 2018-08-10 06:56 | disposition home or self-care (01) ==
LOC: H.ER 04:11
DX: R07.9 Chest pain, unspecified (principal); K29.70 Gastritis, unspecified, without bleeding
CPT/HCPCS: 80053; 81003; 81025; 83690; 85025; 93005; 99283; J2405; J7030